=== PATIENT | female | born 1965 | race Caucasian/White ===

== ENCOUNTER 2022-05-19 00:08 | Emergency (ER) | payer MEDICAID, SELFPAY ==
[2022-05-19 00:09] VITALS: PULSE 93; RESP 19; TEMP 37.1; O2SAT 100
--- NOTE | 2022-05-19 00:10 | PC.NURSE ---
pt states she took an unknown amount of unknown pills. states I collect pills from storage units I buy all over.
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
--- NOTE | 2022-05-19 00:31 | ECG_ITS ---
Measurements Intervals [place] Rate: 85 P: 64 PA: 155 QRS: 39 QRSD: 92 T: 40 QT: 380 QTc: 453 Interpretive Statements SINUS RHYTHM NORMAL ELECTROCARDIOGRAM NO PREVIOUS ECG AVAILABLE FOR COMPARISON Electronically Signed On 05-19-2022 9:48:07 DEPUTY CLERK by Amos Davila M.D.
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
--- NOTE | 2022-05-19 01:18 | PC.NURSE ---
pt became upset because she couldn't dress herself. pt ran out to waiting room. security notified. pt redirected and taken back to room. pt's belongings bagged and secured locked cabinet.
[2022-05-19 01:39] LABS: Basophils Percent Auto 0.2 % (0.2-1.2); Hematocrit 39.8 % (37.0-47.0); Hemoglobin 13.5 g/dL (12.0-15.0); Immature Granulocyte Absolute 0.01 K/mm3 (0.00-0.031); Immature Granulocyte Percent A 0.2 % (0-0.5); Lymphocytes Absolute Auto 0.49 K/mm3 (0.9-3.2); Lymphocytes Percent Auto 8.6 % (18.3-44.2); Mean Corpuscular HGB Conc 33.9 g/dl (32-36); Mean Corpuscular Hemoglobin 32.1 pg (26-34); Mean Corpuscular Volume 94.5 fl (80-100); Mean Platelet Volume 8.8 fl (7.4-10.4); Monocytes Absolute Auto 0.1 K/mm3 (0.1-0.6); Monocytes Percent Auto 1.1 % (2.6-8.5); Neutrophils Absolute Auto 5.1 K/mm3 (1.3-6.7); Neutrophils Percent Auto 89.9 % (45.5-73.1); Platelet Count Result 304 k/mm3 (150-375); Red Blood Count 4.21 M/mm3 (4.2-5.4); Red Cell Distribution Width 12.2 % (11.5-14.5); White Blood Count 5.7 K/mm3 (4.5-10.0)
[2022-05-19 01:50] LABS: Acetaminophen < 10 ug/mL (10-30); Ethanol < 10 mg/dL (<10); Salicylate < 1.0 mg/dL (2-20)
[2022-05-19 01:51] LABS: Alanine Aminotransferase 26 U/L (6-35); Albumin Level 5.2 g/dL (3.5-5.1); Alkaline Phosphatase 90 U/L (38-126); Anion Gap 11 mmol/L (8-16); Aspartate Amino Transferase 31 U/L (14-36); Bilirubin,Total 0.5 mg/dL (0.2-1.3); Blood Urea Nitrogen 17 mg/dL (7-17); Calcium 9.3 mg/dL (8.4-10.2); Carbon Dioxide 18 mmol/L (22-30); Chloride 109 mmol/L (98-107); Estimated CRCL calculation 55 ml/min; Estimated Glomerular Filt Rate > 60; Glucose 146 mg/dL (65-110); Lipase 54 U/L (23-300); Magnesium 2.2 mg/dL (1.6-2.3); Potassium 3.5 mmol/L (3.4-5.0); Sodium 138 mmol/L (137-145)
[2022-05-19 01:52] LABS: Add Urine Microscopic? YES; Appearance Urine Clear (Clear); Bilirubin Urine Negative (Negative); Blood Urine Negative (Negative); Color Urine Yellow (Yellow); Glucose Urine UA Negative (Negative); Ketones Urine 1+ mg/dL (Negative); Leukocyte Esterase Ur Negative LEU/UL (Negative); Nitrate Urine Negative (Negative); Protein Urine Negative (Negative); Urobilinogen Urine 0.2 mg/dL (<2.0); pH Urine 8.5 (5.0-9.0)
[2022-05-19 01:58] LABS: Bacteria Urine Trace /hpf; RBC Urine 0-2 /hpf (0-2); Squamous Epithelial Cell Urine Occasional /hpf (Few); WBC Urine 0-3 /hpf
[2022-05-19 01:59] LABS: INR 1.1; Prothrombin Time 13.3 Seconds (11.1-14.7)
[2022-05-19 02:00] LABS: Partial Thromboplastin Time 27.2 SECONDS (22.3-36.8)
[2022-05-19 02:16] LABS: Amphetamine Screen Urine Negative (Negative); Barbiturate Screen Urine Negative (Negative); Benzodiazepines Screen Urine Negative (Negative); Cannabinoid Screen Urine Negative (Negative); Cocaine Screen Urine Negative (Negative); Methadone Screen Urine Negative (Negative); Opiate Screen Urine Negative (Negative); Phencyclidine Screen Urine Negative (Negative); SARS-CoV-2 RNA PCR Negative
[2022-05-19 02:22] LABS: Thyroid Stimulating Hormone 0.634 uIU/mL (0.465-4.680)
[2022-05-19] MEDS: ONDANSETRON INJ 4 MG/2 ML VIAL IV PUSH (02:35)
[2022-05-19] MEDS: SODIUM CHLORIDE 0.9% IV 1,000 ML 999 ML IV CONT (02:35)
[2022-05-19 02:59] LABS: Alveolar/Arterial O2 Gradient 15.4 mmHg; Base Excess ABG -5.7 mEq/l (+/-2.0); Carboxyhemoglobin 0.4 % THb (0-2.0); Fractional Inspired Oxygen 21 %; HCO3 ABG 16.9 mEq/l (22.0-26.0); Methemoglobin ABG 0.2 %THb (0-1.5); Oxygen Content ABG 17.8 %vol (16.0-22.0); Oxyhemoglobin 96.5 % THb (90.0-100.0); PCO2 ABG 25.8 mmHg (35.0-45.0); PO2 ABG 103.4 mmHg (80.0-100.0); PO2 FiO2 Ratio Arterial Blood 4.92 %; Reduced Hemoglobin 2.9 %THb (0-5.0); pH ABG 7.434 (7.350-7.450)
[2022-05-19 03:05] LABS: Device ROOM AIR; Modified Allen's Test Pass; Site Drawn RIGHT RADIAL
[2022-05-19 03:35] VITALS: BP 159/94; PULSE 84; RESP 18; O2SAT 97
--- NOTE | 2022-05-19 06:47 | PC.NURSE ---
Spoke with Chely @ [place] [facility]. Pt deemed medically cleared since pt has been in ER for over 6 hours and showing no symptoms with negative tox screen
[2022-05-19] MEDS: LORazepam INJ (*CRX) 2 MG/ML VIAL 1 MG IV PUSH (07:04)
[2022-05-19 07:44] VITALS: BP 138/78; PULSE 91; RESP 16; TEMP 36.7; O2SAT 98
--- NOTE | 2022-05-19 07:51 | PC.NURSE ---
Assumed care. Pt restless but cooperative. Awaiting return call from [facility] and [facility]. Sitter at bedside.
--- NOTE | 2022-05-19 08:28 | PC.NURSE ---
[facility] case #[id number]
--- NOTE | 2022-05-19 08:51 | PC.NURSE ---
Chart faxed to [facility].
--- NOTE | 2022-05-19 09:36 | PC.NURSE ---
Pt attempting to hang from the overhead light on the ceiling. States it is shaking . Pt redirected easily.
--- NOTE | 2022-05-19 14:09 | PC.NURSE ---
To [facility] via [facility]. Belongings sent with brother Addi. Condition stable.
== END 2022-05-19 14:09 ==
PROVIDERS: Emergency Provider General Practice
DX: F30.9 Manic episode, unspecified (principal); Z20.822 Contact with and (suspected) exposure to COVID-19
CPT/HCPCS: 36415; 36600; 80053; 80307; 81001; 82375; 82805; 83050; 83690; 83735; 84100; 84443; 85025; 85610; 85730; 93005; 96361; 96374; 96375; 99285; J2060; J2405; J7030; U0003; U0005